=== PATIENT | female | born 1955 | race Caucasian/White ===

== ENCOUNTER 2018-10-26 20:50 | Emergency (ER) | payer BC, OTHER ==
[2018-10-26] MEDS ORDERED: ACETAMINOPHEN 500 MG TAB ONE (21:41)
[2018-10-26] MEDS ORDERED: IBUPROFEN 400 MG TAB ONE (21:41)
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
== END 2018-10-26 22:49 | disposition home or self-care (01) ==
LOC: ER 20:50
DX: M25.551 Pain in right hip (principal); M25.561 Pain in right knee; V49.50XA Passenger injured in collision with unspecified motor vehicles in traffic accident, initial encounter; E78.5 Hyperlipidemia, unspecified; I10 Essential (primary) hypertension; Z88.5 Allergy status to narcotic agent; Z88.2 Allergy status to sulfonamides
CPT/HCPCS: 99284